=== PATIENT | male | born 1950 | race Caucasian/White ===

== ENCOUNTER → 2018-04-07 13:10 | Outpatient (CLI) | payer MEDICARE, SELFPAY | PROVIDERS: PCP Nurse Practitioner Family; Visit Provider Physician Assistant | DX: M79.644 Pain in right finger(s) (principal); Z53.9 Procedure and treatment not carried out, unspecified reason ==

== ENCOUNTER → 2018-07-20 12:59 | Outpatient (CLI) | payer MEDICARE, SELFPAY | PROVIDERS: PCP Nurse Practitioner Family; Visit Provider Physician Assistant | DX: L08.9 Local infection of the skin and subcutaneous tissue, unspecified (principal) | CPT/HCPCS: 87070; 87075; 87077; 87147; 87186; 87205 ==

== ENCOUNTER 2019-03-16 17:55 | Emergency (ER) | payer MEDICARE, SELFPAY ==
[2019-03-16 18:00] VITALS: BP 136/78; PULSE 94; RESP 18; TEMP 36.9; O2SAT 98
--- NOTE | 2019-03-16 20:18 | ED_ITS ---
HPI - Fall General Chief Complaint: Fall Stated Complaint: HIT HEAD FELL OF A LADDER 4FT Time Seen by Provider: 03/16/19 21:10 Source: patient Mode of arrival: Ambulatory Limitations: no limitations History of Present Illness HPI Narrative: This is a 68-year-old male comes to the emergency department with complaint of fall. Patient was on a ladder, he was standing at the top of a 4 ft ladder which was not stable E placed and states that he fell onto his side. He did strike his head on the edge of a concrete step. He states sort of scrapes or grazed the step. He does have a 1 cm laceration on the top of his scalp. He complains of headache which has not improved with Tylenol or ibuprofen. He states not severe but is uncomfortable. No vision changes, no loss of consciousness, he felt a little dazed initially when it happened but otherwise has normal. No nausea, no vomiting. No numbness tingling or weakness. He denies any other neck pain. He has little bit of lower back discomfort by his tailbone and has abrasion on his and some wrist pain on the right. He denies any other medical issues, no prior surgeries. Former smoker, 2-2 alcoholic drinks daily. No illicit. He states his tetanus is up-to-date Related Data Home Medications Medication Instructions Recorded Confirmed No Known Home Medications 03/16/19 03/16/19 Allergies Allergy/AdvReac Type Severity Reaction Status Date / Time No Known Drug Allergies Allergy Verified 03/16/19 18:03 Review of Systems Review of Systems ROS Unobtainable: All systems reviewed & are unremarkable except as noted in HPI and below Patient History Medical/Surgical History Social History Smoking Status: Former smoker Family/Social History Social History Smoking Status: Former smoker Exam Narrative Exam Narrative: GEN: Patient appears in mild distress. HEAD: 1 cm laceration on the midline scalp mild gap no galea involved, no raccoon/Monaco sign. NECK: Nontender, painless range of motion, trachea midline Negative Nexus criteria, there is line tenderness, distracting injury, altered mental status, neuro deficit, recent EtOH. EYES: PERRLA, EOMI ENT: External inspection normal, trachea is midline, TM's are normal no hemotypanum, Nares are clear, no septal hematoma, no dental or oral injury, airway is normal and with normal occlusion, No bony tenderness RESP: Chest is nontender and has symmetric movement, no ecchymosis, breath sounds are normal no crackles, wheezes or rales CVS: Heart sounds are normal, no murmur noted, No JVD. ABG/GI: Nontender, soft, normal bowel sounds, no distention, no organomegaly, pelvic rock is negative NEURO: Oriented AOx3, neuro is grossly intact, sensation and motor is normal all 4 extremities moving, cranial nerves II through XII are intact, GCS is 15 PSYCH: Normal mood and affect SKIN: Abrasion of the left knee, warm and dry, no crepitus and without decubitus BACK: No CVA tenderness, no vertebral tenderness, no step-off's, no crepitus EXT: Atraumatic, hips are nontender, no pedal edema, normal color and temperature, normal range of motion of extremities with normal tendon exam, 2+ pulses in all four extremities Initial Vital Signs Initial Vital Signs: Vital Signs Temperature 98.5 F 03/16/19 18:00 Pulse Rate 94 H 03/16/19 18:00 Respiratory Rate 18 03/16/19 18:00 Blood Pressure 136/78 03/16/19 18:00 Pulse Oximetry 98 03/16/19 18:00 Procedures Laceration Repair Laceration 1: Site: scalp Size (cm): 1 Description: linear Depth: simple, single layer Local Anesthetic: lidocaine 1% Amount of anesthesia used (mL): 0.5 Pre-repair: wound explored, irrigated extensively and deep structures intact Skin layer closed with: silvia (Two) Misc Procedure Name of Procedure: Cervical spine clearance Condition does not have any focal neurologic deficit present, no cervical midline tenderness, no altered level of consciousness, no intoxication, no distracting injury. , no midline cervical tenderness and patient is able to move with full range of motion without any pain. C-collar clinically cleared by Dr. Marroquin Course Orders Ordered: Discontinued Medications Lidocaine/Sodium Bicarbonate (Buffered Lidocaine 10 Ml Syr) 10 ml INJ NOW ONE Stop: 03/16/19 21:23 Vital Signs Vital signs: Vital Signs - 8 hr 03/16/19 18:00 Temperature 98.5 F Pulse Rate 94 H Respiratory Rate 18 Blood Pressure 136/78 Pulse Oximetry 98 Discharge Plan Departure Patient Disposition: Home Clinical Impression: Laceration of scalp, Head injury Discharge Date/Time: 03/16/19 21:51 Instructions: DI for Laceration Repair of the Scalp Activity Restrictions/Additional Instructions: Follow-up the next 7-10 days for removal of her silvia, you can come to the ER, primary care or urgent care for removal. Wound Care: Keep wound(s) clean and dry. Wash daily with soap and water only. Do not use over the counter products (alcohol or peroxide)on the wounds unless instructed by a physician. If wound condition worsens (increased/expanding redness, developing fluid blisters, or worsening pain), either contact your doctor for an urgent re- assessment , or return to the Emergency Department. Return to the Emergency Department for any new or worsening symptoms. Return if fever greater than 100.4 Fahrenheit, increased swelling, increasing pain or worsening symptoms such as increased discharge or spreading redness. Return to the ER if you have severe worsening headaches, altered mental status, new vision changes, persistent vomiting, new weakness, numbness, difficulty with movement or other new or concerning symptoms. Prescriptions: No Action No Known Home Medications RF: 0 Referrals: Li Gomez ARNP [Primary Care Provider] -
--- NOTE | 2019-03-16 21:10 | ED_ITS ---
HPI - Fall General Chief Complaint: Fall Stated Complaint: HIT HEAD FELL OF A LADDER 4FT Time Seen by Provider: 03/16/19 21:10 Source: patient Mode of arrival: Ambulatory Limitations: no limitations History of Present Illness HPI Narrative: This is a 68-year-old male comes to the emergency department with complaint of fall. Patient was standing the top of a 4 ft stepladder when it gave way. He states it was sort of a little oxide. Patient states that he fell backwards and kind of on his side he did hit his head or scrape it on the edge of concrete step. Patient states that there is a cut. He does have a headache states he felt a little dazed initially but since then does not. He denies any vision changes, no nausea or vomiting, no numbness or tingling or weakness, denies any increasing headache he just has not improved with Tylenol or ibuprofen patient has a little bit of wrist pain, pain in his lower back buttock area and the pain. He states he is able to move everything without much issue. He has some small abrasions. States his tetanus is up-to-date. He does not take any medications, no blood thinners, no prior surgeries. Related Data Home Medications Medication Instructions Recorded Confirmed No Known Home Medications 03/16/19 03/16/19 Allergies Allergy/AdvReac Type Severity Reaction Status Date / Time No Known Drug Allergies Allergy Verified 03/16/19 18:03 Review of Systems Review of Systems ROS Unobtainable: All systems reviewed & are unremarkable except as noted in HPI and below Patient History Medical/Surgical History Social History Smoking Status: Former smoker Family/Social History Social History Smoking Status: Former smoker alcohol intake frequency: 0-2 drinks per day Substance Use Type: does not use Exam Narrative Exam Narrative: GEN: Patient appears in mild distress. HEAD: Patient has a 1 cm laceration on the top of his scalp midline no galea involvement, no raccoon/[place] sign. NECK: Nontender, painless range of motion, trachea midline Negative Nexus criteria, there is line tenderness, distracting injury, altered mental status, neuro deficit, recent EtOH. EYES: PERRLA, EOMI ENT: External inspection normal, trachea is midline, TM's are normal no hemotypanum, Nares are clear, no septal hematoma, no dental or oral injury, airway is normal and with normal occlusion, No bony tenderness RESP: Chest is nontender and has symmetric movement, no ecchymosis, breath sounds are normal no crackles, wheezes or rales CVS: Heart sounds are normal, no murmur noted, No JVD. ABG/GI: Nontender, soft, normal bowel sounds, no distention, no organomegaly, pelvic rock is negative NEURO: Oriented AOx3, neuro is grossly intact, sensation and motor is normal all 4 extremities moving, cranial nerves II through XII are intact, GCS is 15 PSYCH: Normal mood and affect SKIN: Patient has a small abrasion on his wrist as well as knee, warm and dry, no crepitus and without decubitus BACK: No CVA tenderness, no vertebral tenderness, no step-off's, no crepitus EXT: Atraumatic, hips are nontender, no pedal edema, normal color and temperature, normal range of motion of extremities with normal tendon exam, 2+ pulses in all four extremities Initial Vital Signs Initial Vital Signs: Vital Signs Temperature 98.5 F 03/16/19 18:00 Pulse Rate 94 H 03/16/19 18:00 Respiratory Rate 18 03/16/19 18:00 Blood Pressure 136/78 03/16/19 18:00 Pulse Oximetry 98 03/16/19 18:00 Course Orders Ordered: Discontinued Medications Lidocaine/Sodium Bicarbonate (Buffered Lidocaine 10 Ml Syr) 10 ml INJ NOW ONE Stop: 03/16/19 21:23 Vital Signs Vital signs: Vital Signs - 8 hr 03/16/19 18:00 Temperature 98.5 F Pulse Rate 94 H Respiratory Rate 18 Blood Pressure 136/78 Pulse Oximetry 98 Discharge Plan Departure Patient Disposition: Home Clinical Impression: Laceration of scalp, Head injury Discharge Date/Time: 03/16/19 21:51 Instructions: DI for Laceration Repair of the Scalp Activity Restrictions/Additional Instructions: Follow-up the next 7-10 days for removal of her silvia, you can come to the ER, primary care or urgent care for removal. Wound Care: Keep wound(s) clean and dry. Wash daily with soap and water only. Do not use over the counter products (alcohol or peroxide)on the wounds unless instructed by a physician. If wound condition worsens (increased/expanding redness, developing fluid blisters, or worsening pain), either contact your doctor for an urgent re- assessment , or return to the Emergency Department. Return to the Emergency Department for any new or worsening symptoms. Return if fever greater than 100.4 Fahrenheit, increased swelling, increasing pain or worsening symptoms such as increased discharge or spreading redness. Return to the ER if you have severe worsening headaches, altered mental status, new vision changes, persistent vomiting, new weakness, numbness, difficulty with movement or other new or concerning symptoms. Prescriptions: No Action No Known Home Medications RF: 0 Referrals: Li Gomez ARNP [Primary Care Provider] -
[2019-03-16 21:49] VITALS: BP 137/74; PULSE 77; RESP 14; TEMP 36.9
== END 2019-03-16 21:51 | disposition home or self-care (01) ==
PROVIDERS: Emergency Provider Emergency Medicine; PCP Nurse Practitioner Family
DX: S01.01XA Laceration without foreign body of scalp, initial encounter (principal); S09.90XA Unspecified injury of head, initial encounter; W11.XXXA Fall on and from ladder, initial encounter
CPT/HCPCS: 12001; 99282

== ENCOUNTER → 2020-12-18 10:05 | Outpatient (CLI) | payer MEDICARE, SELFPAY ==
[2020-12-18 10:48] LABS: Add Manual Diff / Slide Review NO; Basophils Absolute Auto 200 /uL (0-100); Basophils Percent Auto 3.1 % (0-2); Eosinophils Absolute Auto 200 /uL (0-450); Eosinophils Percent Auto 2.9 % (2-4); Hematocrit 45.6 % (41-53); Hemoglobin 15.2 g/dL (13.5-17.5); Lymphocytes Absolute Auto 1900 /uL (1100-4500); Lymphocytes Percent Auto 31.7 % (25-40); Mean Corpuscular HGB Conc 33.5 % (30-36); Mean Corpuscular Hemoglobin 31.4 PG (26-34); Mean Corpuscular Volume 93.9 fL (80-100); Monocytes Absolute Auto 800 /uL (0-900); Monocytes Percent Auto 13.9 % (3-14); Neutrophils Absolute Auto 2800 /uL (1500-7000); Neutrophils Percent Auto 48.4 % (50-75); Platelet Count 228 X10^3/uL (150-400); Red Blood Cell Count 4.85 X10^6/uL (4.5-5.9); Red Cell Distribution Width 13.4 % (11.6-14.8); White Blood Cell Count 5.9 X10^3/uL (4.5-11.0)
[2020-12-18 10:57] LABS: Alanine Aminotransferase 33 IU/L (<50); Albumin 4.8 g/dL (3.5-5.0); Albumin Globulin Ratio 1.6 (1.0-2.8); Alkaline Phosphatase 56 U/L (38-126); Aspartate Aminotransferase 32 IU/L (17-59); BUN Creatinine Ratio 13.6 (6-22); Bilirubin Total 0.6 mg/dL (0.2-1.3); Blood Urea Nitrogen 9 mg/dL (9-20); Calcium 9.6 mg/dL (8.4-10.2); Carbon Dioxide 29 mmol/L (22-32); Chloride 101 mmol/L (98-107); Cholesterol 280 mg/dL (140-199); Estimated Glomerular Filt Rate > 60.0 mL/min (>60); Glucose 101 mg/dL (80-110); HDL Cholesterol 78 mg/dL (40-60); HEMOLYSIS < 15 (0-50); LDL Cholesterol Calculated 171 mg/dL (<100); Potassium 4.2 mmol/L (3.4-5.1); Sodium 138 mmol/L (137-145); Total Protein 7.8 g/dL (6.3-8.2); Triglycerides 153 mg/dL (35-150)
[2020-12-19 10:51] LABS: PSA Free % 16.3 % (.); PSA, Total 6.2 ng/mL (0.0-4.0)
== END ==
PROVIDERS: PCP Physician Assistant; Referring Provider Physician Assistant; Visit Provider Physician Assistant
DX: E78.5 Hyperlipidemia, unspecified (principal); Z12.5 Encounter for screening for malignant neoplasm of prostate
CPT/HCPCS: 36415; 80053; 80061; 84153; 84154; 85025

== ENCOUNTER → 2021-04-13 10:44 | Outpatient (CLI) | payer MEDICARE, SELFPAY ==
[2021-04-13 14:46] LABS: COVID19 -Nasal RAPID Negative (Negative)
== END ==
PROVIDERS: PCP Physician Assistant; Visit Provider Surgery
DX: Z20.822 Contact with and (suspected) exposure to COVID-19 (principal); Z01.812 Encounter for preprocedural laboratory examination
CPT/HCPCS: 87635; C9803

== ENCOUNTER 2021-04-14 10:38 | Day surgery (SDC) | payer MEDICARE, OTHER, SELFPAY ==
[2021-04-10 08:58] VITALS: BMI 26.4
[2021-04-14] VITALS (9 sets, daily range): BP systolic 103–130; BP diastolic 66–79; PULSE 67–76; RESP 12–20; TEMP 36.3–37.1; O2SAT 93–98; BMI 26.4
[2021-04-14] MEDS: LACTATED RINGERS 1,000 ML 100 ML IV (11:08)
--- NOTE | 2021-04-14 11:13 | PM.PREOP ---
Pre-operative Note Interval Note History & Physical reviewed/Exam performed by Physician: Yes Changes to H&P: No
[2021-04-14] MEDS: CEFAZOLIN 1 GM VIAL 2 GM IV (11:35)
--- NOTE | 2021-04-14 11:52 | SUR.OPER ---
Supine on padded OR bed, head on pillow, arms secured on padded arm boards at <90 degrees abduction, legs uncrossed, safety belt at thigh, tape over blanket over lower legs.
[2021-04-14] MEDS: BUPIVACAINE 0.25% (PF) VIAL 30 ML INJ (11:57)
--- NOTE | 2021-04-14 12:38 | PM.OP.1 ---
Operative Date/Time/Diagnoses Date of procedure: 04/14/21 Time of procedure: 12:38 Pre-op diagnosis: Umbilical hernia Post-op diagnosis: same Procedure & Clinicians Procedure: Open umbilical hernia repair with mesh Same procedure as scheduled: Yes Indications: Umbilical hernia Surgeon: Tom Rice Click Yes if Unassisted: Yes Anesthesia Type: General Operative Notes Findings: Viable omentum within the hernia sac. 2 cm fascial defect Specimen(s): none sent Estimated Blood Loss (mL): 5 Procedure in detail: Patient was brought to the operating room placed supine on the table. Bilateral lower extremity compression devices were applied. General anesthesia was induced and they were intubated with an endotracheal tube. They received 2 g of Ancef prior to skin incision. They were prepped and draped in sterile fashion. A time-out was performed. A curvilinear incision was made inferior to the umbilicus. The subcutaneous tissues were divided. The umbilical hernia was identified and the hernia sac was dissected off the umbilical skin and circumferentially off of the fascia defect. The hernia sac was sharply opened and contained viable omentum. The omentum was reduced back into the abdomen. Using blunt dissection I carefully carefully freed the hernia sac from beneath the fascia defect in order to accomodate the mesh. The fascia defect was 2 cm in maximal diameter. A Bard Ventralex ST hernia patch 4 cm was inserted beneath the fascia defect and above the peritoneum in a sublay position. The mesh was anchored in multiple locations using Ethibond suture to the fascia and the fascial defect was closed over the mesh. The umbilical skin was tacked to the subcutaneous tissues and then the remainder of the subcutaneous tissues were reapproximated using 3 0 Vicry,l skin closed with 4 0 Monocryl followed by the application of Dermabond and Steri-Strips. Sponge instrument count at the end of the operation was correct. Patient tolerated procedure well was extubated and transferred to postoperative care unit in stable condition. Complications: none Post-operative Condition: stable Disposition: same day surgery
[2021-04-14] MEDS: fentaNYL 100 MCG/2 ML INJ IV ×4 (12:45→13:09)
[2021-04-14] MEDS: OXYCODONE/ACETAMINOPHEN 5/325 TABLET 1 TAB PO ×2 (13:02→13:20)
[2021-04-14] MEDS: ONDANSETRON 4 MG/2 ML INJ IV (13:39)
--- NOTE | 2021-04-14 13:47 | SUR.PHASEII ---
Called Dr carrasquillo to confirm that patient may be discharged via taxi. Patient states that he has no family or friends to assist him at home. 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 V/U.
--- NOTE | 2021-04-14 14:23 | SUR.PHASEII ---
Called pharmacy to confirm that oxycodone RX available; confirmed post-op appointment with Dr Rice's office for April 23 at 1300; patient ambulatory in Phase II; GCS 15; steady gait. Waiting on taxi.
== END 2021-04-14 14:43 | disposition home or self-care (01) ==
PROVIDERS: PCP Physician Assistant; Referring Provider Surgery; Visit Provider Surgery
PROC: (CPT 49585; principal; 2021-04-14 11:45)
DX: K42.9 Umbilical hernia without obstruction or gangrene (principal)
CPT/HCPCS: 49585; 82962; C1781; J0690; J1100; J2405; J2704; J3010

== ENCOUNTER → 2022-08-16 16:46 | Outpatient (CLI) | payer MEDICARE, OTHER, SELFPAY ==
[2022-08-16 17:47] LABS: Hemoglobin A1C% w Est Avg Glu 5.4 % (4.0-6.0)
[2022-08-16 17:49] LABS: HEMOLYSIS < 15 (0-50)
[2022-08-16 17:58] LABS: Alanine Aminotransferase 21 IU/L (<50); Albumin 4.3 g/dL (3.5-5.0); Albumin Globulin Ratio 1.4 (1.0-2.8); Alkaline Phosphatase 103 U/L (38-126); Aspartate Aminotransferase 26 IU/L (17-59); BUN Creatinine Ratio 18.2 (6-22); Bilirubin Total 0.9 mg/dL (0.2-1.3); Blood Urea Nitrogen 12 mg/dL (9-20); Calcium 8.7 mg/dL (8.4-10.2); Carbon Dioxide 28 mmol/L (22-32); Chloride 101 mmol/L (98-107); Cholesterol 212 mg/dL (140-199); Estimated Glomerular Filt Rate > 60 mL/min (>60); Glucose 90 mg/dL (80-110); HDL Cholesterol 67 mg/dL (40-60); LDL Cholesterol Calculated 124 mg/dL (<100); Potassium 3.9 mmol/L (3.4-5.1); Sodium 137 mmol/L (137-145); Total Protein 7.3 g/dL (6.3-8.2); Triglycerides 107 mg/dL (35-150)
[2022-08-20 11:09] LABS: Prostate Specific Antigen Scrn 5.38 ng/mL (0.1-4.0)
== END ==
PROVIDERS: PCP Family Medicine; Referring Provider Family Medicine; Visit Provider Family Medicine
DX: Z00.00 Encounter for general adult medical examination without abnormal findings (principal); Z13.1 Encounter for screening for diabetes mellitus; Z13.6 Encounter for screening for cardiovascular disorders; Z12.5 Encounter for screening for malignant neoplasm of prostate; Z12.11 Encounter for screening for malignant neoplasm of colon; R97.20 Elevated prostate specific antigen [PSA]
CPT/HCPCS: 36415; 80053; 80061; 83036; G0103

== ENCOUNTER → 2022-08-17 14:17 | Outpatient (CLI) | payer MEDICARE, OTHER, SELFPAY ==
[2022-08-20 18:05] LABS: Fecal Immunochemical Test Negative (Negative)
== END ==
PROVIDERS: PCP Family Medicine; Referring Provider Family Medicine; Visit Provider Family Medicine
DX: Z12.11 Encounter for screening for malignant neoplasm of colon (principal); Z13.1 Encounter for screening for diabetes mellitus
CPT/HCPCS: 82274

== ENCOUNTER → 2022-08-19 08:33 | Outpatient (CLI) | payer MEDICARE, OTHER, SELFPAY ==
--- NOTE | 2022-08-19 08:35 | DI.US.S_ITS ---
PROCEDURE: US ABD AORTA ANEURYSM SCREEN INDICATIONS: screening TECHNIQUE: Real-time scanning was performed of the aorta and proximal common iliac arteries, with image documentation. COMPARISON: None. FINDINGS: Aorta: Abdominal aorta is normal in caliber throughout its length. Iliacs: Proximal common iliac arteries are normal in caliber. IMPRESSION: No infrarenal aortic aneurysm. Dictated by: Mauro Parra M.D. on 08/19/2022 at 9:25 Approved by: Mauro Parra M.D. on 08/19/2022 at 9:25
== END ==
PROVIDERS: PCP Family Medicine; Referring Provider Family Medicine; Visit Provider Family Medicine
DX: Z13.6 Encounter for screening for cardiovascular disorders (principal)
CPT/HCPCS: 76706

== ENCOUNTER → 2022-10-14 11:11 | Outpatient (CLI) | payer MEDICARE, OTHER, SELFPAY ==
--- NOTE | 2022-10-14 | DI.MRI.S_ITS ---
PROCEDURE: MR PELIS WO/W CON INDICATIONS: Disorder of prostate, unspecified TECHNIQUE: Coronal HASTE, axial T1 FSE with fat saturation, 3-plane nonbreath-hold T2 FSE. After the administration of contrast, dynamic axial, delayed axial and coronal VIBE or 2-D FLASH with fat saturation through the pelvis. Optional diffusion weighted imaging and ADC may be performed. COMPARISON: None. FINDINGS: Image quality: Diffusion weighted and dynamic contrast enhanced images are diagnostic. Prostate: The majority of the prostate gland is moderately enlarged measuring 5.4 x 5.0 by 4.5 cm for a volume of 63.2 cc. There is a finger-like projection of the hypertrophied median lobe indenting on the bladder base. Measured separately, its size is 2.8 x 2.0 x 2.6 cm for a volume of 7.6 cc. There is mild diffuse T2 hyperintensity and nodularity in the transition zone. The peripheral zone is thin, but maintained. In the transition zone, there are several areas of non marginated, non encapsulated decreased T2 signal, but none are unique and focally hypointense. Diffusion-weighted imaging demonstrates several small focal areas of mildly decreased ADC signal and moderately increased signal on diffusion. One such area is in the left anterior transition zone, series 25, image 11, and measures 9 mm. One area in the posterolateral right transition zone at mid gland level measures 6 mm. Other small similar lesions are present in the mid gland apex. No convincing peripheral zone lesions. Postcontrast, there is heterogeneous arterial enhancement throughout the transition zone without focal, unique enhancement. These are consistent with PI-RADS two lesions given background of BPH. Genitourinary system: Bladder wall thickness is normal. Distal ureters are non distended. Bowel and peritoneum: No pathologic free pelvic fluid. Inferior colon and small bowel loops are normal in caliber. Nodes and vessels: No pelvic or inguinal adenopathy by size criteria. Iliac vessels are normal in caliber. Soft tissues: Small fat containing left inguinal hernia. Small bilateral femoral hernias containing fat and small lymph nodes. Bones: Marrow demonstrates normal overall signal, without lesions to suggest metastases. IMPRESSION: 1. Tiny bilateral PI-RADS two lesions throughout the prostate gland. Correlation with tissue biopsy recommended. 2. Inguinal and femoral hernias. 3. No adenopathy. Dictated by: Jenn Claros M.D. on 10/14/2022 at 13:46 Approved by: Jenn Claros M.D. on 10/14/2022 at 14:11
== END ==
PROVIDERS: PCP Family Medicine; Referring Provider Urology; Visit Provider Urology
DX: N42.9 Disorder of prostate, unspecified (principal); K40.90 Unilateral inguinal hernia, without obstruction or gangrene, not specified as recurrent; K41.20 Bilateral femoral hernia, without obstruction or gangrene, not specified as recurrent
CPT/HCPCS: 72197; A9579

== ENCOUNTER → 2023-01-17 15:37 | Outpatient (CLI) | payer MEDICARE, OTHER, SELFPAY ==
[2023-01-19 09:17] LABS: PSA Free % 21.7 % (.); PSA, Total 5.2 ng/mL (0.0-4.0)
== END ==
PROVIDERS: PCP Family Medicine; Referring Provider Urology; Visit Provider Urology
DX: R97.20 Elevated prostate specific antigen [PSA] (principal)
CPT/HCPCS: 36415; 84153; 84154

== ENCOUNTER 2023-01-22 17:21 | Emergency (ER) | payer MEDICARE, OTHER, SELFPAY ==
[2023-01-22 17:40] VITALS: BP 123/63; PULSE 60; RESP 18; TEMP 36.9; O2SAT 98; BMI 26.8
--- NOTE | 2023-01-22 17:43 | DI.RAD.S_ITS ---
PROCEDURE: XR TOE RT MIN 2V INDICATIONS: stubbed toe/bruised/swollen TECHNIQUE: 3 views of the 3rd toe(s) acquired. COMPARISON: None. FINDINGS: Bones: No fractures or dislocations. No suspicious bony lesions. Soft tissues: No suspicious soft tissue densities. IMPRESSION: Unremarkable 3rd toe radiographs. No fracture. Approved by: Geovanni Montgomery M.D. on 01/22/2023 at 18:15
--- NOTE | 2023-01-22 19:39 | ED_ITS ---
HPI - Extremity Injury (Lower) General Chief Complaint: Extremity Injury, Lower Stated Complaint: smashed R toe, discoloration Time Seen by Provider: 01/22/23 18:27 Source: patient Mode of arrival: Ambulatory History of Present Illness HPI Narrative: 72M non smoker without contributing medical history presents with chief complaint of an injury to the 3rd toe on his right foot. He states late morning today he was walking and stubbed his toe and had some immediate pain. He went kayaking for much of the day and upon coming back it hurt more and was a bit more swollen. There is some bruising but no breaks in the skin. He denies any other injury and is otherwise well and free of complaint Related Data Home Medications Medication Instructions Recorded Confirmed No Known Home Medications 08/16/22 10/27/22 Allergies Allergy/AdvReac Type Severity Reaction Status Date / Time No Known Drug Allergies Allergy Verified 10/27/22 14:56 Review of Systems Review of Systems Narrative: GENERAL: Denies chills, fatigue, malaise, fever, sweats. HEENT: Denies sinus pain, ear pain, sore throat, difficulty swallowing, dizziness. RESPIRATORY: Denies dyspnea, cough, wheezing, hemoptysis, sputum. CARDIOVASCULAR: Denies chest pain, palpitations, orthopnea, edema, GASTROINTESTINAL: Denies nausea, vomiting, abdominal pain, diarrhea, constipation, melena. : Denies dysuria, frequency, incontinence, hematuria, urinary retention. MUSCULOSKELETAL: See HPI SKIN: Denies rash, skin lesions, or other NEUROLOGIC: Denies weakness, headache, numbness, change in speech, confusion, seizures, incoordination. PSYCHIATRIC: No concerning psychosocial issues. 12 point review of systems is negative except for those stated above Patient History Medical History Abnormal prostate by palpation Bladder outlet obstruction Elevated PSA Hyperlipidemia Lower urinary tract symptoms Medicare annual wellness visit, subsequent Slow urinary stream Urinary hesitancy Surgical History Anesthesia History of hernia repair Social History marital status: unmarried,single number of children: 0 occupational status: employed Smoking Status: Never smoker alcohol intake: never caffeine: Yes Type(s) of exercise: other Smoking Status: Never smoker alcohol intake frequency: 0-2 drinks per day Substance Use Type: does not use Exam Narrative Exam Narrative: GEN: AOx3 and in mild distress EYES: Pupils are equal, round, and reactive to light and accommodation. Extraoccular muscles are intact bilaterally. There is no subconjunctival hemorrhage or exudate. CHEST: Lungs are clear to auscultation bilaterally and free of wheezes, rales, or rhonchi. Heart rate is regular rhythm, there are no murmurs, clicks, rubs, or gallops. There is no chest wall tenderness. ABD: Abdomen is soft and nontender. There is no guarding or rebound. Bowel sounds are normal in all 4 quadrants. There is no mass or organomegaly. EXT: R third toe with some swelling and ecchymosis, no subungual hematoma, no laceration or breaks in the skin SKIN: Warm, pink, and dry. No erythema or rash Initial Vital Signs Initial Vital Signs: Vital Signs Temperature 98.4 F 01/22/23 17:40 Pulse Rate 60 01/22/23 17:40 Respiratory Rate 18 01/22/23 17:40 Blood Pressure 123/63 01/22/23 17:40 Pulse Oximetry 98 01/22/23 17:40 Oxygen Delivery Method Room Air 01/22/23 17:40 Course Orders Ordered: ED Orders 01/22/23 17:43 XR toe RT min 2V Stat Vital Signs Vital signs: Vital Signs - 8 hr 01/22/23 17:40 Temperature 98.4 F Pulse Rate 60 Respiratory Rate 18 Blood Pressure 123/63 Pulse Oximetry 98 Oxygen Delivery Method Room Air MDM - Extremity Injury (Lower) MDM Narrative Medical decision making narrative: [72] year old patient presents with toe pain Multiple etiologies for patient's symptoms considered including, but not limited to: [Fracture versus dislocation versus contusion] Prior Charts reviewed in our EMR Primary Historian: patient Imaging reviewed: No fracture or dislocation Patient's symptoms improved over duration of stay with above-stated therapies. Findings and discharge diagnosis discussed with patient/family followed by verbalization of understanding Return precautions discussed with patient/family whom verbalize understanding of diagnosis and plan Discharge Plan Departure Patient Disposition: Home Clinical Impression: Contusion of third toe of right foot Instructions: DI for Contusion Activity Restrictions/Additional Instructions: *You have been diagnosed with [ toe injury. As we discussed your history and physical exam is reassuring and the x-ray shows no evidence of fracture or dislocation] *What to do: *Please continue to take your regular medications as directed. *Please follow up with your primary care provider in 2-3 days, call for an appointment. Let them know you were seen in the Emergency Department and that we ask that you be seen in follow up. We will electronically transmit a record of today's note if your PCP is in our system *If you do not have a primary care provider please contact the [facility] Resource line at [phone]. They will ask some questions about your medical history and help get you set up with a doctor in the community. *Return to Emergency Department if you should have any new, worsening or concerning symptoms, such as [fever greater than 101 F, shaking chills, worsening pain, persistent vomiting or other bothersome symptoms] Prescriptions: No Action No Known Home Medications Referrals: Jane Pinedo DO [Primary Care Provider] - Stand Alone Forms: Patient Portal/API
== END 2023-01-22 20:44 | disposition home or self-care (01) ==
PROVIDERS: Emergency Provider Emergency Medicine; PCP Family Medicine
DX: S90.121A Contusion of right lesser toe(s) without damage to nail, initial encounter (principal); W22.8XXA Striking against or struck by other objects, initial encounter
CPT/HCPCS: 73660; 99283

== ENCOUNTER → 2023-01-26 14:13 | Outpatient (CLI) | payer MEDICARE, OTHER, SELFPAY | PROVIDERS: PCP Family Medicine; Visit Provider Urology | DX: N42.9 Disorder of prostate, unspecified (principal); N32.0 Bladder-neck obstruction; R39.11 Hesitancy of micturition; R39.198 Other difficulties with micturition; R97.20 Elevated prostate specific antigen [PSA]; R39.9 Unspecified symptoms and signs involving the genitourinary system | CPT/HCPCS: 51798; 81002; 87086; 99213 ==

== ENCOUNTER → 2023-07-13 12:36 | Outpatient (CLI) | payer MEDICARE, OTHER, SELFPAY ==
[2023-07-13 13:54] LABS: Prostate Specific Antigen 6.09 ng/mL (0.10-4.00)
== END ==
LOC: LAB 12:37
PROVIDERS: PCP Family Medicine; Referring Provider Urology; Visit Provider Urology
DX: R97.20 Elevated prostate specific antigen [PSA] (principal)
CPT/HCPCS: 36415; 84153

== ENCOUNTER → 2023-07-19 15:10 | Outpatient (CLI) | payer MEDICARE, OTHER, SELFPAY ==
[2023-07-19 16:27] LABS: BUN Creatinine Ratio 13.2 (6-22); Blood Urea Nitrogen 9 mg/dL (9-20); Calcium 9.1 mg/dL (8.4-10.2); Carbon Dioxide 28 mmol/L (22-32); Chloride 102 mmol/L (98-107); Estimated Glomerular Filt Rate > 60 mL/min (>60); Glucose 84 mg/dL (80-110); HEMOLYSIS < 15 (0-50); Potassium 4.1 mmol/L (3.4-5.1); Sodium 137 mmol/L (137-145)
== END ==
PROVIDERS: PCP Family Medicine; Referring Provider Urology; Visit Provider Urology
DX: N32.0 Bladder-neck obstruction (principal); R31.0 Gross hematuria; N42.9 Disorder of prostate, unspecified; R39.198 Other difficulties with micturition; R39.11 Hesitancy of micturition; R39.9 Unspecified symptoms and signs involving the genitourinary system; R97.20 Elevated prostate specific antigen [PSA]; E78.5 Hyperlipidemia, unspecified; Z87.891 Personal history of nicotine dependence
CPT/HCPCS: 36415; 51798; 80048; 81002; 99214

== ENCOUNTER → 2023-07-22 12:42 | Outpatient (CLI) | payer MEDICARE, OTHER, SELFPAY ==
--- NOTE | 2023-07-22 | DI.CT.S_ITS ---
PROCEDURE: CT IVP A/P W/WO INDICATIONS: Gross hematuria History of tobacco use High prosta TECHNIQUE: Optional 5 mm thick noncontrast images acquired from the diaphragm to the symphysis pubis. After the administration of intravenous contrast, 5 mm thick images acquired from the diaphragm to the symphysis pubis after a 10-minute delay. 2 mm thick coronal and sagittal reformats were then performed of the kidneys and ureters. For radiation dose reduction, the following was used: automated exposure control, adjustment of mA and/or kV according to patient size. COMPARISON: None. FINDINGS: Image quality: Diagnostic. Kidneys and Ureters: Both kidneys are normal in size, without hydronephrosis or nephrolithiasis. No perinephric fat stranding. There is normal bilateral renal enhancement. Renal calyces appear normal in morphology when filled with contrast. Opacified portions of both ureters demonstrate normal caliber Bladder: Bladder wall thickness is normal. No calcified bladder stones. OTHER: Lower chest: Unremarkable. Liver: No solid mass. Gallbladder: No radiopaque gallstones or wall thickening. Biliary ducts: No biliary dilation. Pancreas: There is moderate fatty atrophy at the head of the pancreas. Spleen: Size is within normal limits. A small splenule is present at the hilum. Adrenal Glands: No right adrenal gland nodules. There is a lipid rich 1.4 cm left adrenal gland nodule most consistent with an adrenal adenoma. Stomach and Bowel: Normal colonic caliber, without significant wall thickening. The appendix is thin walled and gas filled. Peritoneum: No abnormal intraperitoneal fluid. No free air. Ventral Wall: No hernia. Abdominal Nodes: No retroperitoneal or mesenteric adenopathy by size criteria. Vessels: Aorta and inferior vena cava are normal in size. PELVIS: Pelvic Organs: The prostate is enlarged and has a nodular appearance. Pelvic Nodes: No enlarged lymph nodes. Miscellaneous: There are large bilateral fat containing inguinal hernias. Bones: No aggressive osseous abnormality. IMPRESSION: 1. No hydronephrosis, nephrolithiasis, hydroureter, or ureterolithiasis 2. No suspicious urothelial filling defects or suspicious renal contrast enhancement. 3. No acute intra-abdominal findings. Normal appendix. 4. Prosthetic hypertrophy. 5. Large bilateral fat containing inguinal hernias. Dictated by: Evonne Davis M.D. on 07/22/2023 at 14:21 Approved by: Evonne Davis M.D. on 07/22/2023 at 14:26
== END ==
PROVIDERS: PCP Family Medicine; Referring Provider Urology; Visit Provider Urology
DX: K40.20 Bilateral inguinal hernia, without obstruction or gangrene, not specified as recurrent (principal); R31.0 Gross hematuria; R97.20 Elevated prostate specific antigen [PSA]; N40.0 Benign prostatic hyperplasia without lower urinary tract symptoms; Z87.891 Personal history of nicotine dependence
CPT/HCPCS: 74178; Q9967

== ENCOUNTER → 2024-01-25 10:50 | Outpatient (CLI) | payer MEDICARE, OTHER, SELFPAY ==
[2024-01-26 07:40] LABS: PSA, Total 5.8 ng/mL (0.0-4.0)
== END ==
PROVIDERS: PCP Family Medicine; Referring Provider Urology; Visit Provider Urology
DX: R97.20 Elevated prostate specific antigen [PSA] (principal)
CPT/HCPCS: 36415; 84153; 84154

== ENCOUNTER → 2024-07-23 13:24 | Outpatient (CLI) | payer MEDICARE, SELFPAY ==
[2024-07-25 07:09] LABS: PSA Free % 24.6 % (.); PSA, Total 5.4 ng/mL (0.0-4.0)
== END ==
PROVIDERS: Referring Provider Urology; Visit Provider Urology
DX: R97.20 Elevated prostate specific antigen [PSA] (principal)
CPT/HCPCS: 36415; 84153; 84154

== ENCOUNTER → 2024-10-24 09:27 | Outpatient (CLI) | payer MEDICARE, SELFPAY ==
[2024-10-24 10:17] LABS: Add Manual Diff / Slide Review NO; Basophils Absolute Auto 100 /uL (0-100); Basophils Percent Auto 1.5 % (0-2); Eosinophils Absolute Auto 200 /uL (0-450); Eosinophils Percent Auto 2.7 % (2-4); Hematocrit 42.4 % (41-53); Hemoglobin 14.4 g/dL (13.5-17.5); Lymphocytes Absolute Auto 1300 /uL (1100-4500); Lymphocytes Percent Auto 22.6 % (25-40); Mean Corpuscular Hemoglobin 32.7 PG (26-34); Mean Corpuscular Volume 96.3 fL (80-100); Monocytes Absolute Auto 700 /uL (0-900); Monocytes Percent Auto 13.3 % (3-14); Neutrophils Absolute Auto 3400 /uL (1500-7000); Neutrophils Percent Auto 59.9 % (50-75); Platelet Count 204 X10^3/uL (150-400); Red Cell Distribution Width 13.4 % (11.6-14.8); White Blood Cell Count 5.6 X10^3/uL (4.5-11.0)
[2024-10-24 10:42] LABS: Alanine Aminotransferase 21 IU/L (<50); Albumin 4.1 g/dL (3.5-5.0); Albumin Globulin Ratio 1.9 (1.0-2.8); Alkaline Phosphatase 90 U/L (38-126); Aspartate Aminotransferase 27 IU/L (17-59); BUN Creatinine Ratio 10.7 (6-22); Bilirubin Total 0.7 mg/dL (0.2-1.3); Blood Urea Nitrogen 8 mg/dL (9-20); Calcium 8.7 mg/dL (8.4-10.2); Carbon Dioxide 24 mmol/L (22-32); Chloride 104 mmol/L (98-107); Cholesterol 196 mg/dL (140-199); Estimated Glomerular Filt Rate > 60 mL/min (>60); Globulin 2.2 g/dL (1.7-4.1); Glucose 93 mg/dL (70-99); HDL Cholesterol 71 mg/dL (40-60); HEMOLYSIS < 15 (0-50); LDL Cholesterol Calculated 114 mg/dL (<100); Potassium 4.5 mmol/L (3.4-5.1); Sodium 134 mmol/L (137-145); Total Protein 6.3 g/dL (6.3-8.2); Triglycerides 57 mg/dL (35-150)
== END ==
PROVIDERS: PCP Nurse Practitioner Family; Referring Provider Nurse Practitioner Family; Visit Provider Nurse Practitioner Family
DX: E78.5 Hyperlipidemia, unspecified (principal); F41.9 Anxiety disorder, unspecified; R97.20 Elevated prostate specific antigen [PSA]
CPT/HCPCS: 36415; 80053; 80061; 85025

== ENCOUNTER → 2024-11-02 10:43 | Outpatient (CLI) | payer MEDICARE, SELFPAY ==
[2024-11-05 10:11] LABS: Fecal Immunochemical Test Negative (Negative)
== END ==
PROVIDERS: PCP Nurse Practitioner Family; Referring Provider Nurse Practitioner Family; Visit Provider Nurse Practitioner Family
DX: Z12.11 Encounter for screening for malignant neoplasm of colon (principal)
CPT/HCPCS: 82274

== ENCOUNTER → 2025-02-26 10:35 | Outpatient (CLI) | payer MEDICARE, SELFPAY ==
[2025-02-28 07:09] LABS: PSA, Total 6.7 ng/mL (0.0-4.0)
== END ==
PROVIDERS: PCP Nurse Practitioner Family; Referring Provider Urology; Visit Provider Urology
DX: R97.20 Elevated prostate specific antigen [PSA] (principal)
CPT/HCPCS: 36415; 84153; 84154